=== PATIENT | male | born 1935 | race Caucasian/White ===

== ENCOUNTER → 2019-05-14 10:52 | Outpatient (CLI) | payer MEDICARE, OTHER ==
[2010-05-18 11:54] VITALS: BMI 22.2
== END | disposition home or self-care (01) ==
LOC: D.RAD 10:52
PROVIDERS: ATTEND Internal Medicine Gastroenterology
DX: R13.10 Dysphagia, unspecified (principal); K22.70 Barrett's esophagus without dysplasia